=== PATIENT | female | born 1985 | race Caucasian/White ===

== ENCOUNTER 2018-02-12 15:05 | Emergency (ER) | payer OTHER, MEDICAID, SELFPAY ==
[2018-02-12 15:37] VITALS: BP 121/69; PULSE 70; RESP 20; TEMP 36.4; O2SAT 100
[2018-02-12 16:35] VITALS: BP 132/87; PULSE 77; RESP 20; O2SAT 97
--- NOTE | 2018-02-12 16:36 | PC.NURSE ---
Pt states she wants to leave. She does not want to wait as she leaves an hour and a half away. Pt states she will just go to a walkin clinic on the way home. Pt's vital signs stable, pt ambulates without difficulty.
== END 2018-02-12 16:46 | disposition left against medical advice (07) ==
DX: R06.02 Shortness of breath (principal)
CPT/HCPCS: 99281; 99282